=== PATIENT | male | born 1995 | race Caucasian/White ===

== ENCOUNTER 2022-08-22 12:36 | Emergency (ER) | payer OTHER ==
[2022-08-22] MEDS ORDERED: VALPROATE NA 500 MG/5 ML INJ IV ONE (13:36)
[2022-08-22] MEDS ORDERED: NA CHLORIDE 0.9% 100 ML ONE (13:39)
[2022-08-22 14:16] LABS: Absolute Lymphocytes (CBC) 1.2 K/uL (0.7-4.9); Hematocrit 39.2 % (39.6-49.0); Lymphocytes % 12.4 % (15.3-44.8); MCV 91.6 fL (80-100); MPV 7.1 fL (7.6-11.3); RBC Red Blood Cell Count 4.28 M/uL (4.33-5.43)
[2022-08-22 15:04] LABS: Albumin 3.3 g/dL (3.4-5.0); Bilirubin Total 0.3 mg/dL (0.2-1.0); Protein, Total 6.6 g/dL (6.4-8.2)
[2022-08-22 15:17] LABS: Potassium 4.6 mEq/L (3.5-5.1)
--- NOTE | 2022-08-22 15:26 | ER ---
Nurse's Notes [facility] Name: Orion Call Age: 27 yrs Sex: Male : 1995 Arrival Date: 08/22/2022 Time: 12:36 Bed 7 Private MD: Diagnosis: Other seizures Presentation: 08/22 13:00 Chief complaint: EMS states: Pt was being processed into [facility] after transfer ph from another [facility] facility, began to have seizure like activity, 4mg Ativan given by [facility], last dose at 1030, VSS for EMS, Spo2 remained 100% during seizure activity, HR remained normal, no post-ictal period noted,, pt hx of epilepsy and PNES. Coronavirus screen: Vaccine status: Patient reports receiving the 2nd dose of the covid vaccine. Ebola Screen: No symptoms or risks identified at this time. Initial Sepsis Screen: Does the patient meet any 2 criteria? No. Patient's initial sepsis screen is negative. Does the patient have a suspected source of infection? No. Patient's initial sepsis screen is negative. Risk Assessment: Do you want to hurt yourself or someone else? Patient reports no desire to harm self or others. Onset of symptoms was August 22, 2022. 13:00 Method Of Arrival: EMS: [facility] 13:00 Acuity: LAURY 3 ph Triage Assessment: 13:05 General: Appears in no apparent distress. Behavior is calm, cooperative. Pain: Denies ph pain. Neuro: Level of Consciousness is awake, alert, obeys commands, Oriented to person, place, time, situation, Seizure activity reported prior to arrival. Cardiovascular: Capillary refill < 3 seconds in bilateral fingers Patient's skin is warm and dry. Respiratory: Airway is patent Respiratory effort is even, unlabored. Derm: Skin is pink, warm \T\ dry. Historical: - Allergies: 13:06 No Known Allergies; ph - Home Meds: 13:06 Fluoxetine Oral [Active]; divalproex oral [Active]; ph - PMHx: 13:06 Seizure; ph - Immunization history:: Adult Immunizations unknown. - Social history:: Smoking status: unknown. Screenin:06 [facility] ED Fall Risk Assessment (Adult) History of falling in the last 3 months, ph including since admission Yes- physiologic fall (2 pts) Confusion or Disorientation No (0 pts) Intoxicated or Sedated No (0 pts) Impaired Gait No (0 pts) Mobility Assist Device Used No (0 pt) Altered Elimination No (0 pt) Score/Fall Risk Level 0 - 2 = Low Risk Oriented to surroundings, Maintained a safe environment, Hourly rounding (assess needs \T\ fall precautionary measures) done. Abuse screen: Denies threats or abuse. Denies injuries from another. Nutritional screening: No deficits noted. Tuberculosis screening: No symptoms or risk factors identified. Assessment: 13:06 General: SEE TRIAGE ASSESSMENT. ph 14:40 Reassessment: Patient appears in no apparent distress at this time. Patient and/or db family updated on plan of care and expected duration. Pain level reassessed. Patient is alert, oriented x 3, equal unlabored respirations, skin warm/dry/pink. patient provided with urinal. 14:47 Reassessment: patient began to clench up and foam at the mouth O2 sat 99%. Notified Dr. darron Small. Dr. Small evaluated patient. Oral suction performed. Patient clenched down on suction while I was suctioning patient. Patient slid down in bed and was clenched. O2 sat 99% during activity. Patient not answering questions with eyes closed. HR became 110 for approximately 20 seconds and then lowered back down to 80's normal sinus. Pt in NAD. Seizure precautions in place. Will continue to monitor patient. 17:08 Reassessment: Patient appears in no apparent distress at this time. Patient and/or ph family updated on plan of care and expected duration. Pain level reassessed. Patient is alert, oriented x 3, equal unlabored respirations, skin warm/dry/pink. Pt d/c back to [facility]. Vital Signs: 13:00 BP 132 / 86; Pulse 67; Resp 18; Temp 97.9; Pulse Ox 99% on R/A; Weight 96.62 kg; Height ph 6 ft. 0 in. ; 14:00 BP 134 / 79; Pulse 65; Resp 18; Pulse Ox 99% on R/A; ph 15:00 BP 117 / 74; Pulse 66; Resp 18; Pulse Ox 98% on R/A; ph 16:00 BP 102 / 61; Pulse 62; Resp 16; Pulse Ox 99% on R/A; ph 17:00 BP 108 / 61; Pulse 59; Resp 16; Temp 97.8; Pulse Ox 99% on R/A; ph 13:00 Body Mass Index 28.89 (96.62 kg, 182.88 cm) ph ED Course: 12:51 Patient arrived in ED. bs3 12:52 Scooter Small MD is Attending Physician. bs3 13:00 Tere Gorman RN is Primary Nurse. ph 13:05 Triage completed. ph 13:05 Arm band placed on Patient placed in an exam room, on a stretcher. ph 13:06 Patient has correct armband on for positive identification. Bed in low position. Call ph light in reach. Side rails up X2. Seizure precautions initiated. Pulse ox on. NIBP on. 17:11 No provider procedures requiring assistance completed. IV discontinued, intact, ph bleeding controlled, No redness/swelling at site. Pressure dressing applied. Administered Medications: 13:34 Drug: Depacon IV 500 mg Volume: 5 ml; Route: IV; Rate: calculated rate; Site: right ph forearm; 14:00 Follow up: Response: No adverse reaction; IV Status: Completed infusion ph Medication: 13:06 VIS not applicable for this client. ph Outcome: 15:26 Discharge ordered by . bs3 17:16 Discharged to Law Enforcement ph 17:16 Condition: good 17:16 Discharge instructions given to patient, Instructed on discharge instructions, follow up and referral plans. Demonstrated understanding of instructions, follow-up care. 17:16 Patient left the ED. ph Signatures: Tere Gorman, RN RN ph Scooter Small MD MD bs3 Sonali Membreno RN RN db
--- NOTE | 2022-08-22 15:26 | EDPHYS ---
Physician Documentation [facility] Name: Orion Call Age: 27 yrs Sex: Male : 1995 Arrival Date: 08/22/2022 Time: 12:36 Bed 7 Private MD: ED Physician Scooter Small HPI: 08/22 12:52 This 27 yrs old Male presents to ER via Unassigned with complaints of bs3 Seizure-like activity. 12:52 27-year-old male presents with seizure-like activity patient reports history of bs3 seizures and possible PNES who is supposed to be on Depakote but has not taken it recently and he presents with seizure-like activity he was being transferred from one facility to another and had seizure-like activity. He now feels well, but does endorse losing his urine. He reports being in [facility] last week for seizures. . Historical: - Allergies: 13:06 No Known Allergies; ph - Home Meds: 13:06 Fluoxetine Oral [Active]; divalproex oral [Active]; ph - PMHx: 13:06 Seizure; ph - Immunization history:: Adult Immunizations unknown. - Social history:: Smoking status: unknown. ROS: 12:52 Constitutional: Negative for fever, chills bs3 12:52 All other systems are negative. 12:52 All other systems are negative. 12:52 All other systems are negative. 12:52 All other systems are negative. Exam: 12:52 Constitutional: This is a well developed, well nourished patient who is awake, alert, bs3 and in no acute distress. Head/Face: Normocephalic, atraumatic. Eyes: Pupils equal round and reactive to light, extra-ocular motions intact. Lids and lashes normal. ENT: mmm, no posterior phyarngeal erythema Neck: Trachea midline, no thyromegaly, no neck stiffness Chest/axilla: Normal chest wall appearance and motion. Nontender with no deformity. No lesions are appreciated. Cardiovascular: Regular rate and rhythm with a normal S1 and S2. symmetric pulses in upper extremities Respiratory: Lungs have equal breath sounds bilaterally, clear to auscultation, no respiratory distress Skin: Warm, dry with normal turgor. Normal color with no rashes, no lesions, and no evidence of cellulitis. MS/ Extremity: Pulses equal, no cyanosis. Neurovascular intact. Full, normal range of motion. Neuro: Awake and alert, GCS 15, oriented to person, place, time, and situation. Cranial nerves II-XII grossly intact. Motor strength 5/5 in all extremities. Sensory grossly intact. Psych: Awake, alert, with orientation to person, place and time. Behavior, mood, and affect are within normal limits. Vital Signs: 13:00 BP 132 / 86; Pulse 67; Resp 18; Temp 97.9; Pulse Ox 99% on R/A; Weight 96.62 kg; Height ph 6 ft. 0 in. ; 14:00 BP 134 / 79; Pulse 65; Resp 18; Pulse Ox 99% on R/A; ph 15:00 BP 117 / 74; Pulse 66; Resp 18; Pulse Ox 98% on R/A; ph 16:00 BP 102 / 61; Pulse 62; Resp 16; Pulse Ox 99% on R/A; ph 17:00 BP 108 / 61; Pulse 59; Resp 16; Temp 97.8; Pulse Ox 99% on R/A; ph 13:00 Body Mass Index 28.89 (96.62 kg, 182.88 cm) ph MDM: 12:52 Patient medically screened. bs3 12:52 Data reviewed: vital signs, nurses notes. ED course: Patient with seizure-like activity bs3 prior to arrival he has no seizure-like activity here he is alert and oriented per EMS he may have a history of nonepileptic seizures we will do serial exams we will get fingerstick basic labs as patient has not been here and reassess. 15:20 ED course: Labs negative for acute pathology vital signs normal here patient had bs3 seizure-like activity in the emergency department by was responsive during the episode possible PNES less likely to be a seizure although given his lack of seizure medications recently this is also a possibility advised outpatient follow-up. 15:25 ED course: Discussed with patient patient agreeable to going home will discharge into bs3 police custody. 08/22 12:54 Order name: CBC with Diff; Complete Time: 14:27 bs3 08/22 12:54 Order name: Comprehensive Metabolic Panel; Complete Time: 15:20 bs3 08/22 12:54 Order name: Glucose Level; Complete Time: 13:09 bs3 08/22 13:20 Order name: Labs - recollect needed; Complete Time: 15:07 ss 08/22 14:14 Order name: Labs - recollect needed: recollect green top again; Complete Time: 15:07 bd Administered Medications: 13:34 Drug: Depacon IV 500 mg Volume: 5 ml; Route: IV; Rate: calculated rate; Site: right ph forearm; 14:00 Follow up: Response: No adverse reaction; IV Status: Completed infusion ph Disposition Summary: 08/22/22 15:26 Discharge Ordered Location: Law Enforcement bs3 Problem: an acute exacerbation bs3 Symptoms: have improved bs3 Condition: Stable bs3 Diagnosis - Other seizures bs3 Followup: bs3 - With: Private Physician - When: 1 - 2 days - Reason: Re-evaluation by your physician Discharge Instructions: - Discharge Summary Sheet bs3 - Seizure, Adult bs3 Forms: - Medication Reconciliation Form bs3 - Thank You Letter bs3 - Antibiotic Education bs3 - Prescription Opioid Use bs3 - [email or web address] bs3 Signatures: Dispatcher [employer] EDMS [facility], SHERRI RN ss Tere Gorman RN RN Scooter Small MD MD bs3 Corrections: (The following items were deleted from the chart) 13:11 12:52 27-year-old male presents with seizure-like activity. bs3 bs3
[2022-08-22 17:55] VITALS: O2SAT 99
[2022-08-22 17:56] VITALS: BP 108/61; TEMP 97.8
== END 2022-08-22 17:16 ==
LOC: ER 12:36
DX: G40.89 Other seizures (principal)
CPT/HCPCS: 36415; 80053; 85025